=== PATIENT | male | born 1945 | race African-American/Black ===

== ENCOUNTER 2019-02-13 19:31 | Emergency (ER) | payer OTHER ==
[~2019-02-13] VITALS: Ht 170.2 cm; Wt 73.0 kg
[2019-02-13] MEDS ORDERED: SODIUM CHLORIDE 0.9% 1,000 ML IV ONE (23:45)
[2019-02-14 00:08] LABS: BASOPHILS % 0.5 % (0.0-2.0); EOSINOPHILS % 0.6 % (0.0-5.0); HEMATOCRIT. 40.9 % (42.0-52.0); HEMOGLOBIN. 13.6 g/dL (14.0-18.0); LYMPHOCYTES % 19.5 % (20.0-50.0); MEAN CORPUSCULAR HEMOGLOBIN 28.4 pg (28.0-32.0); MEAN CORPUSCULAR VOLUME 85.4 fL (80.0-94.0); MEAN PLATELET VOLUME 8.7 fl (7.4-10.4); MONOCYTES % 4.5 % (2.0-8.0); NEUTROPHILS % 74.9 % (40.0-76.0); PLATELET 230 x1000/uL (130-400); RED BLOOD CELL COUNT 4.78 mill/uL (4.7-6.1); RED CELL DISTRIBUTION WIDTH 14.5 % (11.6-14.6)
[2019-02-14 00:14] LABS: CHLORIDE 108 mEq/L (98-107)
[2019-02-14] MEDS ORDERED: ACETAMINOPHEN 325MG TABLET PO PRN (10:45)
[2019-02-14] MEDS ORDERED: ONDANSETRON HCL 4MG/2ML INJ IV PRN (10:45)
[2019-02-14] MEDS ORDERED: ASPIRIN 81MG TABLET PO SCH (14:00)
[2019-02-14 14:41] LABS: LDL CHOLESTEROL 43 mg/dL (5-100)
[2019-02-14 14:43] LABS: HDL CHOLESTEROL 37 mg/dL (40-59)
[2019-02-14 17:12] VITALS: BP 127/78
== END 2019-02-14 17:30 | disposition short-term general hospital (02) ==
LOC: ER 20:01 → EDBEDREQTM 02-14 01:26 → EDBEDREQ 02-14 01:26 → CANBEDREQ 02-14 17:02 → ER 02-14 17:30
DX: G90.8 Other disorders of autonomic nervous system (principal); I10 Essential (primary) hypertension; E11.9 Type 2 diabetes mellitus without complications; E78.5 Hyperlipidemia, unspecified
CPT/HCPCS: 36415; 70450; 71045; 80053; 80061; 83036; 83880; 84443; 84484; 85025; 93005; 93970; 96360; 96361; 99285; J7030